=== PATIENT | male | born 1950 | race Caucasian/White ===

== ENCOUNTER 2022-12-01 10:06 | Outpatient (CLI) | payer MEDICARE, OTHER ==
[2022-12-01 10:58] LABS: Hemoglobin 16.5 g/dL (13.5-17.5); Mean Corpuscular Hemoglobin 32.4 pg (27.0-33.0); Mean Corpuscular Volume 95.3 fl (81.2-95.1); Mean Platelet Volume 11.5 fl (7.4-10.4); Platelet Count 183 10x3/uL (150-450); RBC Distribution Width 12.4 % (11.5-14.5); Red Blood Cell (RBC) Count 5.09 10x6/uL (4.32-5.72); White Blood Cell (WBC) Count 5.8 10x3/uL (3.5-10.5)
[2022-12-01 11:01] LABS: Bilirubin Neg (Negative); Blood, Urine Negative (Negative); Clarity Slightly Cloudy (Clear); Glucose, Urine (Dipstick) Normal (Negative); Ketone, Urine Negative (Negative); Leukocyte Negative (Negative); Nitrite Negative (Negative); Protein, Urine (Dipstick) Negative (Neg-Trace); Urobilinogen Normal mg/dL (Less than 2)
[2022-12-01 11:15] LABS: Bacteria/HPF None Seen HPF (None Seen); RBC/HPF 0-3 HPF (0-3); Squamous Epithelial None Seen HPF (0-3); WBC/HPF 0-3 HPF (0-3)
[2022-12-01 11:23] LABS: Anion Gap 16 mmol/L (10-20); BUN (Urea Nitrogen) 14 mg/dL (8.4-25.7); Calc. Creatinine Clearance 0 mL/min (70-130); Calcium 9.7 mg/dL (7.8-10.44); Carbon Dioxide 23 mmol/L (23-31); Chloride 105 mmol/L (98-107); Estimated GFR 81; Glucose 128 mg/dL (83-110); Potassium 4.2 mmol/L (3.5-5.1); Sodium 140 mmol/L (136-145)
== END 2022-12-01 10:07 | disposition home or self-care (01) ==
LOC: LABBT 10:06
PROVIDERS: ATTEND Urology
DX: Z01.818 Encounter for other preprocedural examination (principal); R97.20 Elevated prostate specific antigen [PSA]; R35.0 Frequency of micturition; N40.1 Benign prostatic hyperplasia with lower urinary tract symptoms
CPT/HCPCS: 71046; 80048; 81001; 85027; 87086; 93005; 93010

== ENCOUNTER 2022-12-17 10:00 | Day surgery (SDC) | payer MEDICARE, OTHER ==
[2022-12-01 10:30] VITALS: BMI 29.1
[2022-12-17] MEDS ORDERED: fentaNYL PF 100 MCG/2 ML SYRINGE ONE (13:00)
[2022-12-17 13:29] LABS: PTT 26.2 sec (22.9-36.1); Prothrombin Time 13.4 sec (12.0-14.7)
[2022-12-17] MEDS ORDERED: Midazolam HCl 2 mg/2 ml Vial ONE (15:39)
[2022-12-17] MEDS ORDERED: Fentanyl 250 MCG/5 ML VIAL ONE (16:10)
[2022-12-17] MEDS ORDERED: Sodium Chloride 0.9% 100 ML ONE (16:14)
[2022-12-17] MEDS ORDERED: cefTRIAXone (ROCEPHIN) 1 GM VIAL ONE (16:14)
== END 2022-12-17 17:28 | disposition home or self-care (01) ==
LOC: SDC 10:00
PROVIDERS: ATTEND Urology
PROC: 0V903ZX Drainage of Prostate, Percutaneous Approach, Diagnostic (ICD-10-PCS; principal; 2022-12-17)
DX: C61 Malignant neoplasm of prostate (principal); N40.1 Benign prostatic hyperplasia with lower urinary tract symptoms; R97.20 Elevated prostate specific antigen [PSA]; R35.0 Frequency of micturition; I10 Essential (primary) hypertension; Z79.82 Long term (current) use of aspirin; Z88.0 Allergy status to penicillin; Z79.899 Other long term (current) drug therapy
CPT/HCPCS: 85610; 85730; G0416; J0696; J2250; J3010; J3490

== ENCOUNTER 2023-02-19 10:39 | Outpatient (CLI) | payer MEDICARE, OTHER ==
[2023-02-19 12:02] LABS: #Eosinphils 0.1 10x3/uL (0.0-0.5); #Monocytes 0.8 10x3/uL (0.0-1.1); #Neutrophils 3.1 10x3/uL (1.5-8.4); %Basophils 0.6 % (0.0-2.0); %Eosinophils 2.2 % (0.0-6.0); %Lymphocytes 21.4 % (18.0-47.0); %Monocytes 15.1 % (0.0-10.0); %Neutrophils 60.5 % (40.0-75.0); Hematocrit 46.6 % (38.8-50.0); Hemoglobin 16.5 g/dL (13.5-17.5); Mean Corpuscular HGB CONC 35.4 g/dL (32.0-36.0); Mean Corpuscular Volume 90.3 fl (81.2-95.1); Mean Platelet Volume 11.4 fl (7.4-10.4); Platelet Count 191 10x3/uL (150-450); RBC Distribution Width 12.7 % (11.5-14.5); Red Blood Cell (RBC) Count 5.16 10x6/uL (4.32-5.72); White Blood Cell (WBC) Count 5.1 10x3/uL (3.5-10.5)
[2023-02-19 12:32] LABS: PTT 27.6 sec (22.0-33.0); Prothrombin Time 10.3 sec (9.5-12.1)
[2023-02-19 12:42] LABS: ALT (SGPT) 16 U/L (8-55); AST (SGOT) 17 U/L (5-34); Albumin 4.6 g/dL (3.4-4.8); Alkaline Phosphatase 73 U/L (40-110); Anion Gap 13 mmol/L (10-20); BUN (Urea Nitrogen) 15 mg/dL (8.4-25.7); Bilirubin, Direct 0.3 mg/dL (0.1-0.3); Calc. Creatinine Clearance 0 mL/min (70-130); Calcium 9.7 mg/dL (7.8-10.44); Carbon Dioxide 26 mmol/L (23-31); Chloride 105 mmol/L (98-107); Estimated GFR 78; Globulin 3.1 g/dL (2.4-3.5); Glucose 126 mg/dL (83-110); Potassium 4.1 mmol/L (3.5-5.1); Protein, Total 7.7 g/dL (5.8-8.1); Sodium 140 mmol/L (136-145)
== END 2023-02-19 10:40 | disposition home or self-care (01) ==
LOC: LABBT 10:39
PROVIDERS: ATTEND Internal Medicine Cardiovascular Disease
DX: Z01.818 Encounter for other preprocedural examination (principal)
CPT/HCPCS: 80053; 80076; 85025; 85610; 85730; 93005; 93010

== ENCOUNTER 2023-02-22 06:06 | Day surgery (SDC) | payer MEDICARE, OTHER ==
[2023-02-22 07:17] LABS: Cardiac Risk 4.8 (Less than 4.5)
[2023-02-22] MEDS ORDERED: Midazolam HCl 2 mg/2 ml Vial ONE (08:06)
[2023-02-22] MEDS ORDERED: fentaNYL 50 mcg/mL 1 mL Vial ONE (08:06)
[2023-02-22] MEDS ORDERED: Verapamil 5 MG/2 ML VIAL ONE (08:07)
[2023-02-22] MEDS ORDERED: Lidocaine 1% (PF) 30 ML VIAL ONE (08:07)
[2023-02-22] MEDS ORDERED: Heparin 10,000 UNITS/ 10 ML VIAL ONE (08:07)
[2023-02-22] MEDS ORDERED: Nitroglycerin 50 MG/250 ML BOT 250 ML ONE (08:11)
[2023-02-22] MEDS ORDERED: Iopamidol 370 76% 100 ML VIAL ONE (13:18)
== END 2023-02-22 12:28 | disposition home or self-care (01) ==
LOC: CCL 06:06
PROVIDERS: ATTEND Internal Medicine Cardiovascular Disease
PROC: 4A023N7 Measurement of Cardiac Sampling and Pressure, Left Heart, Percutaneous Approach (ICD-10-PCS; principal; 2023-02-22)
DX: R06.02 Shortness of breath (principal); R94.39 Abnormal result of other cardiovascular function study; I10 Essential (primary) hypertension; C61 Malignant neoplasm of prostate; Z98.890 Other specified postprocedural states; F17.210 Nicotine dependence, cigarettes, uncomplicated; Z79.899 Other long term (current) drug therapy; Z88.0 Allergy status to penicillin
CPT/HCPCS: 80061; 93458; C1769; C1894; J3010; 99152; J1644; J2001; J2250

== ENCOUNTER 2023-03-02 06:22 | Inpatient (IN) | payer MEDICARE, OTHER ==
[2023-03-02] MEDS ORDERED: Bupivacaine PF 0.5% 30 ML VIAL ONE (06:29)
[2023-03-02] MEDS ORDERED: EPINEPHrine 1 MG/ML AMP ONE (06:29)
[2023-03-02] MEDS ORDERED: Albumin 5% 500 ML ONE (06:29)
[2023-03-02] MEDS ORDERED: Dexamethasone 4 mg/ml Vial ONE (06:29)
[2023-03-02] MEDS ORDERED: Fentanyl 250 MCG/5 ML VIAL ONE (06:44)
[2023-03-02] MEDS ORDERED: Midazolam HCl 2 mg/2 ml Vial ONE ×2 (06:44)
[2023-03-02] MEDS ORDERED: Dexmedetomidine 200 MCG/2 ML VIAL ONE (06:44)
[2023-03-02] MEDS ORDERED: Heparin 10,000 UNITS/1 ML VIAL 30,000 UNITS in Sodium Chloride 0.9% 1,000 ML FS SCH (07:00)
[2023-03-02] MEDS ORDERED: Lidocaine 1% PF 5 ML VIAL ONE ×2 (07:03→07:32)
[2023-03-02] MEDS ORDERED: CEFAZOLIN 2 GM VIAL ONE (07:04)
[2023-03-02] MEDS ORDERED: Sodium Chloride 0.9% 100 ML ONE (07:05)
[2023-03-02] MEDS ORDERED: Aminocaproic Acid 5 GM/20 ML VIAL ONE (07:32)
[2023-03-02] MEDS ORDERED: Esmolol 100 MG/10 ML VIAL ONE (07:32)
[2023-03-02] MEDS ORDERED: Protamine Sulfate 250 MG/25 ML VIAL ONE (07:32)
[2023-03-02] MEDS ORDERED: Thrombin 5000 UNITS/5 ML VIAL ONE (07:32)
[2023-03-02] MEDS ORDERED: Potassium Chloride 60 MEQ/30 ML VIAL ONE (07:32)
[2023-03-02] MEDS ORDERED: Calcium Chloride 1 GM/10 ML Abboject SYRINGE ONE (07:32)
[2023-03-02] MEDS ORDERED: Heparin 30,000 units/30 ml VIAL ONE (07:32)
[2023-03-02] MEDS ORDERED: Sodium Bicarb 50 MEQ/50 ML Abboject 8.4% SYRINGE ONE (07:32)
[2023-03-02] MEDS ORDERED: Heparin 5,000 UNITS/ML VIAL ONE (07:32)
[2023-03-02] MEDS ORDERED: Nitroglycerin 50 MG/250 ML BOT ONE (07:32)
[2023-03-02] MEDS ORDERED: Vancomycin 1 GM VIAL ONE (07:32)
[2023-03-02] MEDS ORDERED: PROPOFOL 200 MG/20 ML VIAL ONE (07:32)
[2023-03-02] MEDS ORDERED: Vecuronium 10 MG VIAL ONE (07:32)
[2023-03-02] MEDS ORDERED: Papaverine 60 MG/2 ML VIAL ONE (07:32)
[2023-03-02] MEDS ORDERED: Norepinephrine 4 MG/4 ML VIAL ONE (07:32)
[2023-03-02] MEDS ORDERED: Cardioplegic Soln 1,000 ML BAG ONE (07:32)
[2023-03-02] MEDS ORDERED: Sevoflurane 250 ML INH ANEST BOTTLE ONE (07:33)
[2023-03-02] MEDS ORDERED: Insulin Regular 300 UNITS/3 ML VIAL ONE (09:13)
[2023-03-02] MEDS ORDERED: PHENYLEPHRINE-NS 100 MCG/ML 10 ML SYRINGE ONE (09:19)
[2023-03-02] MEDS ORDERED: Heparin 10,000 UNITS/ 10 ML VIAL ONE (09:19)
[2023-03-02] MEDS ORDERED: Promethazine HCl 25 MG/ML VIAL IM PRN (12:47)
[2023-03-02] MEDS ORDERED: Potassium Chloride 20 MEQ/100 ML PREMIX BAG IVPB PRN (12:47)
[2023-03-02] MEDS ORDERED: NOREPINEPHRINE 8 MG/250 ML-D5W 250 ML IVPB PRN (12:47)
[2023-03-02] MEDS ORDERED: Magnesium 2 GM/50 ML(in water) 2 GM in Premix 1 BAG IVPB SCH (12:47)
[2023-03-02] MEDS ORDERED: Bisacodyl 5 MG TAB PO PRN (12:47)
[2023-03-02] MEDS ORDERED: Post-Op Insulin Drip Protocol IVPB SCH (12:47)
[2023-03-02] MEDS ORDERED: Guaifenesin DM 100-10/5 ML UDCUP PO PRN (12:47)
[2023-03-02] MEDS ORDERED: Ipratropium/Albuterol 3 ML NEB NEB PRN (12:47)
[2023-03-02] MEDS ORDERED: Morphine 2 MG/ML VIAL SLOW IVP PRN (12:47)
[2023-03-02] MEDS ORDERED: Bisacodyl 10 MG SUPP PR PRN (12:47)
[2023-03-02] MEDS ORDERED: Mag-Al 1200 mg/1200 mg/30 ML UDCUP PO PRN (12:47)
[2023-03-02] MEDS ORDERED: hydrALAZINE 20 MG/ML VIAL SLOW IVP PRN (12:47)
[2023-03-02 12:58] VITALS: BMI 30.2
[2023-03-02 12:58] LABS: #Eosinphils 0.1 thou/uL (0.0-0.7); #Neutrophils 16.8 thou/uL (1.40-6.50); %Basophils 0.2 % (0.0-1.0); %Eosinophils 0.5 % (0.0-10.0); %Lymphocytes 6.3 % (21.0-51.0); %Monocytes 5.3 % (0.0-10.0); %Neutrophils 86.9 % (42.0-75.0); Hematocrit 38.9 % (42.0-52.0); Hemoglobin 13.8 g/dL (14.0-18.0); Mean Corpuscular HGB CONC 35.5 g/dL (32.0-36.0); Mean Corpuscular Hemoglobin 32.5 pg (27.0-31.0); Mean Corpuscular Volume 91.7 fl (78.0-98.0); Mean Platelet Volume 11.1 fL (7.4-10.4); Platelet Count 149 10x3/uL (130-400); RBC Distribution Width 12.6 % (11.5-14.5); Red Blood Cell (RBC) Count 4.24 mill/uL (4.70-6.10); White Blood Cell (WBC) Count 19.4 10x3/uL (4.8-10.8)
[2023-03-02] MEDS ORDERED: Aspirin 325 MG TAB PO SCH ×2 (13:00→17:00)
[2023-03-02] MEDS ORDERED: Dextrose 50% Abboject 50 ML SYRINGE SLOW IVP PRN (13:00)
[2023-03-02] MEDS ORDERED: Dextrose 5% in Water 1,000 ML IV PRN (13:00)
[2023-03-02] MEDS ORDERED: HUMULIN R 100 UNITS in Sodium Chloride 0.9% 100 ML IVPB SCH (13:00)
[2023-03-02] MEDS ORDERED: Glucagon 1 MG/ML KIT SC PRN (13:00)
[2023-03-02 13:09] LABS: INR-International Normal Ratio 1.3; PTT 29.8 sec (22.9-36.1); Prothrombin Time 16.5 sec (12.0-14.7)
[2023-03-02] MEDS: fentaNYL 50 mcg/mL 1 mL Vial SLOW IVP PRN ×4 (13:09→21:12)
[2023-03-02] MEDS: Sodium Chloride 0.9% 1,000 ML IV SCH ×2 (13:22→22:54)
[2023-03-02 13:25] LABS: Actual Bicarbonate (HCO3a) 19.9 mEq/L (22-28); Base Excess (BEa) -5.5 mEq/L (-2.0 to +3.0); CO2 Tension 38.5 mmHg (35.0-45.0); Calcium, Ionized (arterial) 1.12 mmol/L (1.12-1.30); Carboxyhemoglobin (COHb) 0.7 gm% (0.0-3.0); Hematocrit-ABG 42 % (42.0-52.0); Hemoglobin (Hb) 14.3 g/dL (14.0-18.0); O2 Tension (PaO2), arterial 82.3 mmHg (> 70.0); Potassium - ABG Lab 3.61 mmol/L (3.70-5.30); pH, Arterial 7.331 (7.35-7.45)
[2023-03-02 13:25] LABS: Anion Gap 11 mmol/L (10-20); BUN (Urea Nitrogen) 15 mg/dL (8.4-25.7); Calc. Creatinine Clearance 114 mL/min (70-130); Carbon Dioxide 22 mmol/L (23-31); Chloride 110 mmol/L (98-107); Estimated GFR 91; Glucose 123 mg/dL (83-110); Potassium 3.7 mmol/L (3.5-5.1); Sodium 139 mmol/L (136-145)
[2023-03-02 13:34] LABS: Puncture Site ALINE
[2023-03-02 15:05] LABS: Actual Bicarbonate (HCO3a) 19.4 mEq/L (22-28); Base Excess (BEa) -5.3 mEq/L (-2.0 to +3.0); CO2 Tension 35.3 mmHg (35.0-45.0); Carboxyhemoglobin (COHb) 0.9 gm% (0.0-3.0); Hematocrit-ABG 41 % (42.0-52.0); Potassium - ABG Lab 3.91 mmol/L (3.70-5.30); pH, Arterial 7.358 (7.35-7.45)
[2023-03-02 15:06] LABS: ALV-art Gradient 145.075 mmHg (0-20); Puncture Site ALINE
[2023-03-02] MEDS: Ondansetron PF 4 MG/2 ML Vial IVP PRN (15:28)
[2023-03-02] MEDS: CEFAZOLIN 2 GM in Sodium Chloride 0.9% 100 ML IVPB SCH ×2 (16:14→22:55)
[2023-03-02] MEDS: Ketorolac Tromethamine 30 MG/ML VIAL IVP SCH ×2 (16:14→22:55)
[2023-03-02] MEDS: Insulin Regular 300 UNITS/3 ML VIAL SC PRN ×2 (16:52→21:38)
[2023-03-02] MEDS ORDERED: Methocarbamol 500 MG TAB PO PRN (17:33)
[2023-03-02] MEDS ORDERED: Aspirin 300 MG Suppository PR SCH (17:45)
[2023-03-02 18:48] LABS: Hematocrit 36.3 % (42.0-52.0); Hemoglobin 12.6 g/dL (14.0-18.0)
[2023-03-02] MEDS: HYDROcodone/Acetaminophen 5/325 mg Tablet PO PRN (18:49)
[2023-03-02 19:16] LABS: Potassium 4.4 mmol/L (3.5-5.1)
[2023-03-02] MEDS ORDERED: Atorvastatin Calcium 20 MG TAB PO SCH (21:00)
[2023-03-02] MEDS: Famotidine/PF 20 mg/2ml Vial SLOW IVP SCH (21:12)
[2023-03-03] MEDS: HYDROcodone/Acetaminophen 5/325 mg Tablet PO PRN ×3 (04:38→22:39)
[2023-03-03 04:44] LABS: #Monocytes 1.8 thou/uL (0.11-0.59); #Neutrophils 13.9 thou/uL (1.40-6.50); %Basophils 0.1 % (0.0-1.0); %Lymphocytes 2.7 % (21.0-51.0); %Neutrophils 85.6 % (42.0-75.0); Hematocrit 35.3 % (42.0-52.0); Hemoglobin 12.2 g/dL (14.0-18.0); Mean Corpuscular HGB CONC 34.6 g/dL (32.0-36.0); Mean Corpuscular Hemoglobin 32.2 pg (27.0-31.0); Mean Corpuscular Volume 93.1 fl (78.0-98.0); Mean Platelet Volume 11.6 fL (7.4-10.4); Platelet Count 167 10x3/uL (130-400); Red Blood Cell (RBC) Count 3.79 mill/uL (4.70-6.10); White Blood Cell (WBC) Count 16.2 10x3/uL (4.8-10.8)
[2023-03-03 05:04] LABS: Anion Gap 11 mmol/L (10-20); BUN (Urea Nitrogen) 15 mg/dL (8.4-25.7); Calc. Creatinine Clearance 117 mL/min (70-130); Calcium 8.2 mg/dL (7.8-10.44); Carbon Dioxide 21 mmol/L (23-31); Chloride 109 mmol/L (98-107); Estimated GFR 92; Glucose 118 mg/dL (83-110); Potassium 4.1 mmol/L (3.5-5.1); Sodium 137 mmol/L (136-145)
[2023-03-03] MEDS: Ketorolac Tromethamine 30 MG/ML VIAL IVP SCH ×3 (05:38→18:01)
[2023-03-03] MEDS: Aspirin 325 MG TAB PO SCH (09:19)
[2023-03-03] MEDS: Famotidine/PF 20 mg/2ml Vial SLOW IVP SCH ×2 (09:19→22:38)
[2023-03-03] MEDS: CEFAZOLIN 2 GM in Sodium Chloride 0.9% 100 ML IVPB SCH (09:20)
[2023-03-03] MEDS: Sodium Chloride 0.9% 1,000 ML IV SCH ×2 (10:37→22:26)
[2023-03-03] MEDS: Magnesium 2 GM/50 ML(in water) 2 GM in Premix 1 BAG IVPB SCH (10:38)
[2023-03-03] MEDS: Ondansetron PF 4 MG/2 ML Vial IVP PRN (11:40)
[2023-03-03] MEDS ORDERED: Insulin Glargine 30 UNITS/0.3 ML VIAL SC PRN (12:59)
[2023-03-03] MEDS: Insulin Regular 300 UNITS/3 ML VIAL SC PRN ×2 (18:08→22:43)
[2023-03-03] MEDS: Atorvastatin Calcium 40 MG TAB PO SCH (22:39)
[2023-03-04] MEDS: Ketorolac Tromethamine 30 MG/ML VIAL IVP SCH ×2 (01:58→06:26)
[2023-03-04 04:02] LABS: #Monocytes 2.2 thou/uL (0.11-0.59); #Neutrophils 13.3 thou/uL (1.40-6.50); %Basophils 0.1 % (0.0-1.0); %Lymphocytes 6.1 % (21.0-51.0); %Monocytes 13.2 % (0.0-10.0); %Neutrophils 80.1 % (42.0-75.0); Hematocrit 34.2 % (42.0-52.0); Hemoglobin 11.4 g/dL (14.0-18.0); Mean Corpuscular HGB CONC 33.3 g/dL (32.0-36.0); Mean Corpuscular Hemoglobin 31.2 pg (27.0-31.0); Mean Corpuscular Volume 93.7 fl (78.0-98.0); Platelet Count 163 10x3/uL (130-400); RBC Distribution Width 13.3 % (11.5-14.5); Red Blood Cell (RBC) Count 3.65 mill/uL (4.70-6.10); White Blood Cell (WBC) Count 16.6 10x3/uL (4.8-10.8)
[2023-03-04 04:36] LABS: Anion Gap 10 mmol/L (10-20); BUN (Urea Nitrogen) 25 mg/dL (8.4-25.7); Calc. Creatinine Clearance 77 mL/min (70-130); Calcium 8.8 mg/dL (7.8-10.44); Carbon Dioxide 25 mmol/L (23-31); Chloride 107 mmol/L (98-107); Estimated GFR 58; Glucose 110 mg/dL (83-110); Potassium 4.8 mmol/L (3.5-5.1); Sodium 137 mmol/L (136-145)
[2023-03-04] MEDS: HYDROcodone/Acetaminophen 5/325 mg Tablet PO PRN ×2 (04:44→18:52)
[2023-03-04] MEDS: Insulin Regular 300 UNITS/3 ML VIAL SC PRN ×2 (06:26→17:23)
[2023-03-04] MEDS: Aspirin 325 MG TAB PO SCH (11:05)
[2023-03-04] MEDS: Famotidine/PF 20 mg/2ml Vial SLOW IVP SCH ×2 (11:06→21:18)
[2023-03-04] MEDS: Magnesium 2 GM/50 ML(in water) 2 GM in Premix 1 BAG IVPB SCH (11:06)
[2023-03-04] MEDS: Metoprolol Tartrate 25 MG TAB PO SCH ×2 (11:07→21:19)
[2023-03-04] MEDS: Heparin 5,000 UNITS/ML VIAL SC SCH ×2 (15:30→21:18)
[2023-03-04] MEDS: Sodium Chloride 0.9% 1,000 ML IV SCH (18:47)
[2023-03-04] MEDS: Atorvastatin Calcium 40 MG TAB PO SCH (21:18)
[2023-03-05] MEDS: HYDROcodone/Acetaminophen 5/325 mg Tablet PO PRN ×4 (02:49→21:39)
[2023-03-05 04:40] LABS: #Monocytes 1.8 thou/uL (0.11-0.59); #Neutrophils 11.3 thou/uL (1.40-6.50); %Basophils 0.1 % (0.0-1.0); %Eosinophils 0.1 % (0.0-10.0); %Lymphocytes 4.9 % (21.0-51.0); %Monocytes 12.9 % (0.0-10.0); %Neutrophils 81.4 % (42.0-75.0); Hematocrit 33.7 % (42.0-52.0); Hemoglobin 11.6 g/dL (14.0-18.0); Mean Corpuscular HGB CONC 34.4 g/dL (32.0-36.0); Mean Corpuscular Volume 92.8 fl (78.0-98.0); Mean Platelet Volume 12.2 fL (7.4-10.4); Platelet Count 174 10x3/uL (130-400); RBC Distribution Width 13.2 % (11.5-14.5); Red Blood Cell (RBC) Count 3.63 mill/uL (4.70-6.10); White Blood Cell (WBC) Count 13.8 10x3/uL (4.8-10.8)
[2023-03-05 05:07] LABS: Anion Gap 13 mmol/L (10-20); BUN (Urea Nitrogen) 26 mg/dL (8.4-25.7); Calc. Creatinine Clearance 97 mL/min (70-130); Calcium 8.7 mg/dL (7.8-10.44); Carbon Dioxide 20 mmol/L (23-31); Chloride 106 mmol/L (98-107); Estimated GFR 76; Glucose 123 mg/dL (83-110); Potassium 4.2 mmol/L (3.5-5.1); Sodium 135 mmol/L (136-145)
[2023-03-05] MEDS ORDERED: Furosemide 20 MG/2 ML VIAL SLOW IVP SCH (08:00)
[2023-03-05] MEDS: Aspirin 325 MG TAB PO SCH (09:10)
[2023-03-05] MEDS: Metoprolol Tartrate 25 MG TAB PO SCH ×2 (09:11→21:40)
[2023-03-05] MEDS: Famotidine/PF 20 mg/2ml Vial SLOW IVP SCH ×2 (09:11→21:41)
[2023-03-05] MEDS: Heparin 5,000 UNITS/ML VIAL SC SCH ×3 (09:16→21:41)
[2023-03-05] MEDS: Furosemide 20 MG/2 ML VIAL SLOW IVP SCH (14:11)
[2023-03-05] MEDS: Atorvastatin Calcium 40 MG TAB PO SCH (21:41)
[2023-03-06 04:09] LABS: #Eosinphils 0.1 thou/uL (0.0-0.7); #Monocytes 1.5 thou/uL (0.11-0.59); #Neutrophils 5.9 thou/uL (1.40-6.50); %Basophils 0.3 % (0.0-1.0); %Eosinophils 1.2 % (0.0-10.0); %Lymphocytes 17.6 % (21.0-51.0); %Monocytes 16.8 % (0.0-10.0); %Neutrophils 63.8 % (42.0-75.0); Hematocrit 32.8 % (42.0-52.0); Mean Corpuscular HGB CONC 33.5 g/dL (32.0-36.0); Mean Corpuscular Hemoglobin 31.6 pg (27.0-31.0); Mean Corpuscular Volume 94.3 fl (78.0-98.0); Mean Platelet Volume 12.9 fL (7.4-10.4); Platelet Count 129 10x3/uL (130-400); RBC Distribution Width 13.2 % (11.5-14.5); Red Blood Cell (RBC) Count 3.48 mill/uL (4.70-6.10); White Blood Cell (WBC) Count 9.2 10x3/uL (4.8-10.8)
[2023-03-06 04:34] LABS: Anion Gap 13 mmol/L (10-20); BUN (Urea Nitrogen) 25 mg/dL (8.4-25.7); Calc. Creatinine Clearance 113 mL/min (70-130); Calcium 8.8 mg/dL (7.8-10.44); Carbon Dioxide 22 mmol/L (23-31); Chloride 107 mmol/L (98-107); Estimated GFR 90; Glucose 105 mg/dL (83-110); Sodium 138 mmol/L (136-145)
[2023-03-06] MEDS: Furosemide 20 MG/2 ML VIAL SLOW IVP SCH (05:21)
[2023-03-06] MEDS ORDERED: Amiodarone 450 MG, Admixture Fee 1 EACH in Dextrose 5% in Water 250 ML IVPB SCH (05:30)
[2023-03-06] MEDS: HYDROcodone/Acetaminophen 5/325 mg Tablet PO PRN ×2 (06:02→14:04)
[2023-03-06 06:10] LABS: ALT (SGPT) 11 U/L (8-55); AST (SGOT) 19 U/L (5-34); Albumin 3.5 g/dL (3.4-4.8); Alkaline Phosphatase 50 U/L (40-110); Bilirubin, Direct 0.3 mg/dL (0.1-0.3); Bilirubin, Total 0.5 mg/dL (0.2-1.2); Magnesium 2.3 mg/dL (1.6-2.6); Protein, Total 5.7 g/dL (5.8-8.1)
[2023-03-06] MEDS: Famotidine/PF 20 mg/2ml Vial SLOW IVP SCH ×2 (09:28→20:30)
[2023-03-06] MEDS: Heparin 5,000 UNITS/ML VIAL SC SCH ×3 (09:29→20:30)
[2023-03-06] MEDS: Aspirin 325 MG TAB PO SCH (09:29)
[2023-03-06] MEDS: Metoprolol Tartrate 25 MG TAB PO SCH ×2 (09:29→20:29)
[2023-03-06] MEDS ORDERED: Furosemide 40 MG/4 ML VIAL SLOW IVP SCH (11:00)
[2023-03-06] MEDS: Insulin Regular 300 UNITS/3 ML VIAL SC PRN (14:03)
[2023-03-06] MEDS: Atorvastatin Calcium 40 MG TAB PO SCH (20:29)
[2023-03-07] MEDS: HYDROcodone/Acetaminophen 5/325 mg Tablet PO PRN ×3 (01:56→15:16)
[2023-03-07 04:43] LABS: #Eosinphils 0.2 thou/uL (0.0-0.7); #Monocytes 1.3 thou/uL (0.11-0.59); #Neutrophils 5.4 thou/uL (1.40-6.50); %Basophils 0.4 % (0.0-1.0); %Eosinophils 1.9 % (0.0-10.0); %Lymphocytes 13.6 % (21.0-51.0); %Monocytes 16.5 % (0.0-10.0); %Neutrophils 67.1 % (42.0-75.0); Hematocrit 31.7 % (42.0-52.0); Mean Corpuscular HGB CONC 34.7 g/dL (32.0-36.0); Mean Corpuscular Hemoglobin 31.8 pg (27.0-31.0); Mean Corpuscular Volume 91.6 fl (78.0-98.0); Mean Platelet Volume 11.8 fL (7.4-10.4); Platelet Count 228 10x3/uL (130-400); RBC Distribution Width 12.9 % (11.5-14.5); Red Blood Cell (RBC) Count 3.46 mill/uL (4.70-6.10)
[2023-03-07 05:07] LABS: Phosphorus 3.5 mg/dL (2.3-4.7)
[2023-03-07 05:08] LABS: Anion Gap 14 mmol/L (10-20); BUN (Urea Nitrogen) 20 mg/dL (8.4-25.7); Calc. Creatinine Clearance 107 mL/min (70-130); Carbon Dioxide 23 mmol/L (23-31); Chloride 104 mmol/L (98-107); Estimated GFR 86; Glucose 113 mg/dL (83-110); Potassium 3.6 mmol/L (3.5-5.1); Sodium 137 mmol/L (136-145)
[2023-03-07] MEDS ORDERED: Furosemide 20 MG/2 ML VIAL SLOW IVP SCH (06:00)
[2023-03-07] MEDS ORDERED: Amiodarone 200 MG TAB PO SCH (09:45)
[2023-03-07] MEDS: Metoprolol Tartrate 25 MG TAB PO SCH ×2 (09:46→21:09)
[2023-03-07] MEDS: Famotidine/PF 20 mg/2ml Vial SLOW IVP SCH ×2 (09:48→21:09)
[2023-03-07] MEDS: Heparin 5,000 UNITS/ML VIAL SC SCH ×3 (09:48→21:09)
[2023-03-07] MEDS: Aspirin 325 MG TAB PO SCH (09:48)
[2023-03-07] MEDS: Furosemide 20 MG TAB PO SCH (15:11)
[2023-03-07] MEDS: Atorvastatin Calcium 40 MG TAB PO SCH (21:09)
[2023-03-07] MEDS: Acetaminophen 325 MG TAB PO PRN (21:10)
[2023-03-07] MEDS: Amiodarone 200 MG TAB PO SCH (21:10)
[2023-03-08 04:05] LABS: #Eosinphils 0.3 thou/uL (0.0-0.7); #Monocytes 1.3 thou/uL (0.11-0.59); %Basophils 0.4 % (0.0-1.0); %Eosinophils 3.3 % (0.0-10.0); %Lymphocytes 15.5 % (21.0-51.0); %Monocytes 16.8 % (0.0-10.0); %Neutrophils 63.2 % (42.0-75.0); Hematocrit 30.9 % (42.0-52.0); Hemoglobin 10.6 g/dL (14.0-18.0); Mean Corpuscular HGB CONC 34.3 g/dL (32.0-36.0); Mean Corpuscular Hemoglobin 31.3 pg (27.0-31.0); Mean Corpuscular Volume 91.2 fl (78.0-98.0); Mean Platelet Volume 11.1 fL (7.4-10.4); Platelet Count 252 10x3/uL (130-400); RBC Distribution Width 12.8 % (11.5-14.5); Red Blood Cell (RBC) Count 3.39 mill/uL (4.70-6.10); White Blood Cell (WBC) Count 7.9 10x3/uL (4.8-10.8)
[2023-03-08 04:33] LABS: Anion Gap 16 mmol/L (10-20); BUN (Urea Nitrogen) 16 mg/dL (8.4-25.7); Calc. Creatinine Clearance 110 mL/min (70-130); Calcium 8.8 mg/dL (7.8-10.44); Carbon Dioxide 24 mmol/L (23-31); Chloride 106 mmol/L (98-107); Estimated GFR 90; Glucose 110 mg/dL (83-110); Potassium 3.7 mmol/L (3.5-5.1); Sodium 142 mmol/L (136-145)
[2023-03-08] MEDS: Acetaminophen 325 MG TAB PO PRN (05:50)
[2023-03-08 08:44] VITALS: BP 166/85; TEMP 98.1
[2023-03-08] MEDS: Amiodarone 200 MG TAB PO SCH (08:44)
[2023-03-08] MEDS: Famotidine/PF 20 mg/2ml Vial SLOW IVP SCH (08:44)
[2023-03-08] MEDS: Aspirin 325 MG TAB PO SCH (08:44)
[2023-03-08] MEDS: Furosemide 20 MG TAB PO SCH (08:45)
[2023-03-08] MEDS: Metoprolol Tartrate 25 MG TAB PO SCH (08:45)
[2023-03-08] MEDS: Heparin 5,000 UNITS/ML VIAL SC SCH (08:45)
[2023-03-08] MEDS ORDERED: Lisinopril 2.5 MG TAB PO SCH (09:00)
== END 2023-03-08 10:38 | disposition home or self-care (01) | DRG 236 ==
LOC: SURG A 06:22 → CCU 11:39 → 2NO 03-03 13:18
PROVIDERS: ADMIT Student in an Organized Health Care Education/Training Program; ATTEND Student in an Organized Health Care Education/Training Program
PROC: 02100Z9 Bypass Coronary Artery, One Artery from Left Internal Mammary, Open Approach (ICD-10-PCS; principal; 2023-03-02)
PROC: 021109W Bypass Coronary Artery, Two Arteries from Aorta with Autologous Venous Tissue, Open Approach (ICD-10-PCS; 2023-03-02)
PROC: 06BQ4ZZ Excision of Left Saphenous Vein, Percutaneous Endoscopic Approach (ICD-10-PCS; 2023-03-02)
PROC: 02L70CK Occlusion of Left Atrial Appendage with Extraluminal Device, Open Approach (ICD-10-PCS; 2023-03-02)
PROC: 5A1221Z Performance of Cardiac Output, Continuous (ICD-10-PCS; 2023-03-02)
PROC: 4A133R1 Monitoring of Arterial Saturation, Peripheral, Percutaneous Approach (ICD-10-PCS; 2023-03-02)
PROC: 3E033XZ Introduction of Vasopressor into Peripheral Vein, Percutaneous Approach (ICD-10-PCS; 2023-03-02)
PROC: 30233J1 Transfusion of Nonautologous Serum Albumin into Peripheral Vein, Percutaneous Approach (ICD-10-PCS; 2023-03-02)
PROC: 0W9B30Z Drainage of Left Pleural Cavity with Drainage Device, Percutaneous Approach (ICD-10-PCS; 2023-03-05)
DX: I25.118 Atherosclerotic heart disease of native coronary artery with other forms of angina pectoris (principal); J93.9 Pneumothorax, unspecified; I97.190 Other postprocedural cardiac functional disturbances following cardiac surgery; I10 Essential (primary) hypertension; F17.290 Nicotine dependence, other tobacco product, uncomplicated; F10.90 Alcohol use, unspecified, uncomplicated; Z98.890 Other specified postprocedural states; Z79.899 Other long term (current) drug therapy; Z88.0 Allergy status to penicillin; Z79.82 Long term (current) use of aspirin; Z85.46 Personal history of malignant neoplasm of prostate
CPT/HCPCS: 36415; 36416; 36430; 71045; 80048; 80076; 82310; 82805; 83735; 84100; 84443; 85025; 85610; 85730; 86850; 86900; 86901; 93005; 93010; 93798; 94002; 94150; 97139; A4311; C1751; J0171; J0282; J0360; J1100; J1642; J1644; J1815; J1885; J1940; J2250; J2405; J2440; J2704; J2720; J3010; J3370; J3475; J3480; J3490; J7050; J7070; P9045; S0017; S0020; S0028

== ENCOUNTER 2023-04-28 21:06 | Emergency (ER) | payer MEDICARE, OTHER ==
[~2023-04-28 21:06] MED LIST: Iopamidol-370 76% 500 ML MDV (1 ML CHARGE) ONE
[2023-04-28 22:18] LABS: Hematocrit 37.4 % (42.0-52.0); Hemoglobin 12.5 g/dL (14.0-18.0); Manual Diff?? YES; Mean Corpuscular HGB CONC 33.4 g/dL (32.0-36.0); Mean Corpuscular Hemoglobin 29.8 pg (27.0-31.0); Mean Platelet Volume 11.6 fL (7.4-10.4); Platelet Count 237 10x3/uL (130-400); RBC Distribution Width 13.4 % (11.5-14.5); White Blood Cell (WBC) Count 5.5 10x3/uL (4.8-10.8)
[2023-04-28 22:19] LABS: Delete Auto Diff?? YES
[2023-04-28 22:35] LABS: ALT (SGPT) 13 U/L (8-55); AST (SGOT) 16 U/L (5-34); Albumin 3.9 g/dL (3.4-4.8); Alkaline Phosphatase 94 U/L (40-110); Anion Gap 13 mmol/L (10-20); BUN (Urea Nitrogen) 16 mg/dL (8.4-25.7); Bilirubin, Total 0.6 mg/dL (0.2-1.2); Calc. Creatinine Clearance 0 mL/min (70-130); Calcium 9.2 mg/dL (7.8-10.44); Carbon Dioxide 22 mmol/L (23-31); Chloride 106 mmol/L (98-107); Estimated GFR 78; Globulin 3.3 g/dL (2.4-3.5); Glucose 113 mg/dL (83-110); Potassium 3.9 mmol/L (3.5-5.1); Protein, Total 7.2 g/dL (5.8-8.1); Sodium 137 mmol/L (136-145)
[2023-04-28 22:38] LABS: Troponin I 0.012 ng/mL (< 0.028)
[2023-04-28 22:40] LABS: Eosinophils 1 % (0-10); Lymphocytes 26 % (21-51); Monocytes 12 % (0-10); Neutrophil 61 % (42-75)
[2023-04-28 22:41] LABS: Ovalocytes SLIGHT = 2-5 cells (100X) (0-1/hpf); Poikilocytosis SLIGHT = 6-15 cells (100X) (0-5/hpf)
[2023-04-28 22:45] LABS: Platelet Adequacy Comment Platelets Normal; RBC Morph Comment Within Normal Limits
[2023-04-28] MEDS ORDERED: Lisinopril 10 MG TAB ONE (23:31)
== END 2023-04-28 23:37 | disposition home or self-care (01) ==
LOC: ERS 21:06
DX: I10 Essential (primary) hypertension (principal); R06.02 Shortness of breath; K22.89 Other specified disease of esophagus; R79.89 Other specified abnormal findings of blood chemistry
CPT/HCPCS: 71045; 71275; 80053; 83880; 84484; 85025; 93005; 94760; Q9967

== ENCOUNTER 2023-10-14 08:55 | Outpatient (CLI) | payer MEDICARE, OTHER ==
[2023-10-14 09:57] LABS: Bilirubin Neg (Negative); Blood, Urine Negative (Negative); Clarity Clear (Clear); Glucose, Urine (Dipstick) Normal (Negative); Ketone, Urine Negative (Negative); Leukocyte Negative (Negative); Nitrite Negative (Negative); Protein, Urine (Dipstick) Negative (Neg-Trace); Specific Gravity, Urine 1.015 (1.005-1.030)
[2023-10-14 10:13] LABS: Hematocrit 42.2 % (38.8-50.0); Hemoglobin 14.3 g/dL (13.5-17.5); Mean Corpuscular HGB CONC 33.9 g/dL (32.0-36.0); Mean Corpuscular Hemoglobin 30.1 pg (27.0-33.0); Mean Corpuscular Volume 88.8 fL (81.2-95.1); Mean Platelet Volume 11.9 fL (7.4-10.4); Platelet Count 198 10x3/uL (150-450); RBC Distribution Width 15.2 % (11.5-14.5); Red Blood Cell (RBC) Count 4.75 10x6/uL (4.32-5.72); White Blood Cell (WBC) Count 5.8 10x3/uL (3.5-10.5)
[2023-10-14 10:19] LABS: Bacteria/HPF Rare-Few HPF (None Seen); RBC/HPF 0-3 HPF (0-3); Squamous Epithelial 0-3 HPF (0-3); WBC/HPF 0-3 HPF (0-3)
[2023-10-14 10:24] LABS: PTT 26.7 sec (22.0-33.0)
[2023-10-14 10:29] LABS: ALT (SGPT) 34 U/L (8-55); AST (SGOT) 30 U/L (5-34); Albumin 4.2 g/dL (3.4-4.8); Alkaline Phosphatase 99 U/L (40-110); Anion Gap 13 mmol/L (10-20); BUN (Urea Nitrogen) 20 mg/dL (8.4-25.7); Calc. Creatinine Clearance 0 mL/min (70-130); Calcium 10.1 mg/dL (7.8-10.44); Carbon Dioxide 26 mmol/L (23-31); Chloride 106 mmol/L (98-107); Estimated GFR 80; Globulin 2.9 g/dL (2.4-3.5); Glucose 106 mg/dL (83-110); Potassium 4.8 mmol/L (3.5-5.1); Protein, Total 7.1 g/dL (5.8-8.1); Sodium 140 mmol/L (136-145)
== END 2023-10-14 08:56 | disposition home or self-care (01) ==
LOC: LABBT 08:55
PROVIDERS: ATTEND Urology
DX: Z01.818 Encounter for other preprocedural examination (principal); C61 Malignant neoplasm of prostate; N40.1 Benign prostatic hyperplasia with lower urinary tract symptoms; R35.0 Frequency of micturition
CPT/HCPCS: 71046; 80053; 81001; 85027; 85610; 85730; 87086

== ENCOUNTER 2023-10-28 06:16 | Inpatient (IN) | payer MEDICARE, OTHER ==
[2023-10-28 16:36] VITALS: BMI 24.0
[2023-10-28 17:38] LABS: #Basophils Less than 0.03 10x3/uL (0.0-0.2); #Eosinphils Less than 0.03 10x3/uL (0.0-0.7); %Basophils 0.1 % (0.0-1.0); %Lymphocytes 2.2 % (21.0-51.0); %Monocytes 6.4 % (0.0-10.0); Hemoglobin 13.9 g/dL (14.0-18.0); Mean Corpuscular HGB CONC 33.1 g/dL (32.0-36.0); Mean Corpuscular Hemoglobin 29.5 pg (27.0-31.0); Mean Corpuscular Volume 89.2 fL (78.0-98.0); Mean Platelet Volume 12.1 fL (7.4-10.4); Platelet Count 193 10x3/uL (130-400); RBC Distribution Width 14.5 % (11.5-14.5); Red Blood Cell (RBC) Count 4.71 mill/uL (4.70-6.10)
[2023-10-28 17:49] LABS: Anion Gap 14 mmol/L (10-20); BUN (Urea Nitrogen) 13 mg/dL (8.4-25.7); Calc. Creatinine Clearance 95 mL/min (70-130); Calcium 9.3 mg/dL (7.8-10.44); Carbon Dioxide 19 mmol/L (23-31); Chloride 111 mmol/L (98-107); Estimated GFR 92; Glucose 140 mg/dL (83-110); Potassium 4.1 mmol/L (3.5-5.1); Sodium 140 mmol/L (136-145)
[2023-10-29 06:40] LABS: Anion Gap 12 mmol/L (10-20); BUN (Urea Nitrogen) 16 mg/dL (8.4-25.7); Calc. Creatinine Clearance 65 mL/min (70-130); Calcium 8.9 mg/dL (7.8-10.44); Carbon Dioxide 20 mmol/L (23-31); Chloride 109 mmol/L (98-107); Estimated GFR 64; Glucose 128 mg/dL (83-110); Potassium 4.3 mmol/L (3.5-5.1); Sodium 137 mmol/L (136-145)
[2023-10-29 07:21] LABS: #Basophils Less than 0.03 10x3/uL (0.0-0.2); #Eosinphils Less than 0.03 10x3/uL (0.0-0.7); %Basophils 0.1 % (0.0-1.0); %Lymphocytes 5.8 % (21.0-51.0); %Monocytes 9.6 % (0.0-10.0); %Neutrophils 84.1 % (42.0-75.0); Hematocrit 37.7 % (42.0-52.0); Hemoglobin 12.5 g/dL (14.0-18.0); Mean Corpuscular HGB CONC 33.2 g/dL (32.0-36.0); Mean Corpuscular Hemoglobin 29.6 pg (27.0-31.0); Mean Corpuscular Volume 89.3 fL (78.0-98.0); Mean Platelet Volume 12.1 fL (7.4-10.4); Platelet Count 226 10x3/uL (130-400); RBC Distribution Width 14.9 % (11.5-14.5); Red Blood Cell (RBC) Count 4.22 mill/uL (4.70-6.10)
[2023-10-30 07:00] LABS: #Basophils 0.04 10x3/uL (0.0-0.2); %Basophils 0.4 % (0.0-1.0); %Eosinophils 1.3 % (0.0-10.0); %Lymphocytes 13.2 % (21.0-51.0); %Monocytes 12.4 % (0.0-10.0); %Neutrophils 72.4 % (42.0-75.0); Hematocrit 35.8 % (42.0-52.0); Hemoglobin 11.8 g/dL (14.0-18.0); Mean Corpuscular Hemoglobin 29.3 pg (27.0-31.0); Mean Corpuscular Volume 88.8 fL (78.0-98.0); Mean Platelet Volume 11.4 fL (7.4-10.4); Platelet Count 200 10x3/uL (130-400); RBC Distribution Width 14.8 % (11.5-14.5); Red Blood Cell (RBC) Count 4.03 mill/uL (4.70-6.10)
[2023-10-30 09:17] LABS: Anion Gap 14 mmol/L (10-20); BUN (Urea Nitrogen) 20 mg/dL (8.4-25.7); Calc. Creatinine Clearance 86 mL/min (70-130); Calcium 8.8 mg/dL (7.8-10.44); Carbon Dioxide 16 mmol/L (23-31); Chloride 108 mmol/L (98-107); Estimated GFR 90; Glucose 79 mg/dL (83-110); Sodium 133 mmol/L (136-145)
[2023-10-31 10:45] LABS: Hematocrit 37.2 % (42.0-52.0); Hemoglobin 12.5 g/dL (14.0-18.0); Mean Corpuscular HGB CONC 33.6 g/dL (32.0-36.0); Mean Corpuscular Hemoglobin 29.9 pg (27.0-31.0); Mean Platelet Volume 11.1 fL (7.4-10.4); Platelet Count 223 10x3/uL (130-400); RBC Distribution Width 14.9 % (11.5-14.5); Red Blood Cell (RBC) Count 4.18 mill/uL (4.70-6.10)
[2023-10-31 11:12] LABS: Anion Gap 15 mmol/L (10-20); BUN (Urea Nitrogen) 14 mg/dL (8.4-25.7); Calc. Creatinine Clearance 111 mL/min (70-130); Calcium 9.2 mg/dL (7.8-10.44); Carbon Dioxide 19 mmol/L (23-31); Chloride 106 mmol/L (98-107); Estimated GFR 97; Glucose 109 mg/dL (83-110); Potassium 4.1 mmol/L (3.5-5.1); Sodium 136 mmol/L (136-145)
[2023-11-01 06:35] LABS: Hematocrit 35.9 % (42.0-52.0); Hemoglobin 11.8 g/dL (14.0-18.0); Mean Corpuscular HGB CONC 32.9 g/dL (32.0-36.0); Mean Corpuscular Hemoglobin 29.4 pg (27.0-31.0); Mean Corpuscular Volume 89.5 fL (78.0-98.0); Mean Platelet Volume 11.1 fL (7.4-10.4); Platelet Count 246 10x3/uL (130-400); RBC Distribution Width 14.7 % (11.5-14.5); Red Blood Cell (RBC) Count 4.01 mill/uL (4.70-6.10)
[2023-11-01 07:29] LABS: ALT (SGPT) 10 U/L (8-55); AST (SGOT) 14 U/L (5-34); Albumin 2.8 g/dL (3.4-4.8); Alkaline Phosphatase 79 U/L (40-110); Anion Gap 13 mmol/L (10-20); BUN (Urea Nitrogen) 12 mg/dL (8.4-25.7); Calc. Creatinine Clearance 110 mL/min (70-130); Calcium 8.9 mg/dL (7.8-10.44); Carbon Dioxide 23 mmol/L (23-31); Chloride 105 mmol/L (98-107); Estimated GFR 96; Globulin 3.1 g/dL (2.4-3.5); Glucose 103 mg/dL (83-110); Potassium 4.1 mmol/L (3.5-5.1); Protein, Total 5.9 g/dL (5.8-8.1); Sodium 137 mmol/L (136-145)
[2023-11-01 08:27] VITALS: BP 196/91; TEMP 98.1
[2023-11-05 13:01] LABS: Actual Bicarbonate (HCO3a) 21.4 mEq/L (22-28); Analyzer IN Cardio OR; Base Excess (BEa) -1.5 mEq/L (-2.0 to +3.0); CO2 Tension 30.7 mmHg (35.0-45.0); Calcium, Ionized (arterial) 1.16 mmol/L (1.12-1.30); Carboxyhemoglobin (COHb) 0.3 gm% (0.0-3.0); Hematocrit-ABG 36 % (42.0-52.0); Hemoglobin (Hb) 12.3 g/dL (14.0-18.0); O2 Tension (PaO2), arterial 456.6 mmHg (> 70.0); Potassium - ABG Lab 3.56 mmol/L (3.70-5.30); Puncture Site Arterial Line; pH, Arterial 7.462 (7.35-7.45)
== END 2023-11-01 11:19 | disposition home or self-care (01) | DRG 708 ==
LOC: SDC 06:16 → SURG A 16:05 → OBSVTOIN 10-30 11:13
PROVIDERS: ADMIT Urology; ATTEND Urology
PROC: 0VT04ZZ Resection of Prostate, Percutaneous Endoscopic Approach (ICD-10-PCS; principal; 2023-10-28)
PROC: 07TC4ZZ Resection of Pelvis Lymphatic, Percutaneous Endoscopic Approach (ICD-10-PCS; 2023-10-28)
PROC: 8E0W4CZ Robotic Assisted Procedure of Trunk Region, Percutaneous Endoscopic Approach (ICD-10-PCS; 2023-10-28)
DX: C61 Malignant neoplasm of prostate (principal); I25.10 Atherosclerotic heart disease of native coronary artery without angina pectoris; Z95.1 Presence of aortocoronary bypass graft; I10 Essential (primary) hypertension; R31.0 Gross hematuria; Z88.0 Allergy status to penicillin; Z79.899 Other long term (current) drug therapy
CPT/HCPCS: 36415; 80048; 80053; 85025; 85027; 86850; 86900; 86901; 88309; 96365; 96366; 96375; 96376; A4333; C1713; C1776; C1889; C2613; G0378; J0360; J0665; J0690; J0694; J1100; J1580; J1642; J1885; J2001; J2250; J2405; J2704; J3010; J3490; J7050